=== PATIENT | female | born 1950 | race Caucasian/White ===

== ENCOUNTER → 2016-11-09 | Outpatient (CLI) | payer OTHER ==
--- NOTE | 2016-11-10 15:12 | REP ---
Right shoulder three views : There is no fracture or dislocation. Mineralization and joint spaces are normal. There are no calcifications or foreign bodies. Impression: Negative right shoulder . Signed by Cristian Solares MD 11/09/2016 07:45 P
== END ==
LOC: M ADAMS 16:40
PROVIDERS: ATTEND Physician Assistant
DX: M25.511 Pain in right shoulder (principal)

== ENCOUNTER → 2017-02-15 | Outpatient (REF) | payer OTHER | LOC: M SFHCWAGY 10:24 | PROVIDERS: ATTEND Nurse Practitioner Family | DX: Z12.4 Encounter for screening for malignant neoplasm of cervix (principal); N95.2 Postmenopausal atrophic vaginitis ==

== ENCOUNTER → 2018-02-18 | Outpatient (REF) | payer MEDICARE, OTHER | LOC: M SFHCWAGY 10:27 | DX: Z12.4 Encounter for screening for malignant neoplasm of cervix (principal); N95.2 Postmenopausal atrophic vaginitis | CPT/HCPCS: G0123 ==

== ENCOUNTER 2018-03-18 07:59 | Day surgery (SDC) | payer MEDICARE, OTHER ==
[2018-03-18] MEDS: NS 1,000 ML IV (08:00)
[2018-03-18] MEDS ORDERED: LIDOCAINE 2% INJ 100 MG/5 ML SDV (FOR ANES.) As Ordered (08:12)
[2018-03-18] MEDS ORDERED: PROPOFOL 200 MG/20 ML VIAL As Ordered (08:12)
== END 2018-03-18 10:20 | disposition home or self-care (01) ==
LOC: M OPP 07:59
DX: Z12.11 Encounter for screening for malignant neoplasm of colon (principal); Z86.010 Personal history of colon polyps; K57.30 Diverticulosis of large intestine without perforation or abscess without bleeding; Z78.0 Asymptomatic menopausal state; R06.83 Snoring; Z88.8 Allergy status to other drugs, medicaments and biological substances; Z80.1 Family history of malignant neoplasm of trachea, bronchus and lung
CPT/HCPCS: G0105

== ENCOUNTER → 2018-12-17 | Outpatient (REF) | payer MEDICARE, OTHER ==
[~2018-12-17] MED LIST: ALEV220T26 PO; CALC500T49 PO; VITA100067 PO
[2018-12-17 19:26] LABS: BASO % 0.3 % (0.0-1.0); EOS # 0.1 10^3/uL (0.0-0.50); EOS % 0.8 % (0.0-3.0); HEMATOCRIT 41.2 % (36.0-47.0); HEMOGLOBIN 13.4 g/dl (12.0-15.5); LYMPH # 2.4 10^3/uL (1.5-4.5); LYMPH % 30.3 % (24.0-44.0); MEAN CORPUSCULAR HEMOGLOBIN 32.5 pg (27.0-33.0); MEAN CORPUSCULAR HGB CONC 32.5 g/dl (32.0-36.5); MONO # 0.7 10^3/uL (0.0-0.8); MONO % 9.3 % (0.0-5.0); NEUTROPHILS # 4.6 10^3/uL (1.8-7.7); PLATELET COUNT, AUTOMATED 220 10^3/uL (150-450); RED BLOOD COUNT 4.12 10^6/uL (4.00-5.40); WHITE BLOOD COUNT 7.8 10^3/uL (4.0-10.0)
[2018-12-18 09:53] LABS: FOLATE 13.2 NG/ML
== END ==
LOC: M SFHCADAM 15:36
PROVIDERS: ATTEND Physician Assistant
DX: D72.819 Decreased white blood cell count, unspecified (principal); D75.89 Other specified diseases of blood and blood-forming organs; Z23 Encounter for immunization
CPT/HCPCS: 82607; 82746; 85025; 90732; G0009; G0463

== ENCOUNTER → 2020-03-24 | Outpatient (REF) | payer MEDICARE, OTHER | LOC: M SFHCWAGY 18:03 | PROVIDERS: ATTEND Nurse Practitioner Family | DX: Z12.4 Encounter for screening for malignant neoplasm of cervix (principal); N95.2 Postmenopausal atrophic vaginitis ==

== ENCOUNTER → 2024-01-22 | Outpatient (REF) | payer MEDICARE, OTHER | LOC: M SFHCADAM 13:45 | PROVIDERS: ATTEND Family Medicine | DX: D72.819 Decreased white blood cell count, unspecified (principal); R73.03 Prediabetes; E78.5 Hyperlipidemia, unspecified; E03.8 Other specified hypothyroidism ==

== ENCOUNTER → 2025-01-22 | Outpatient (CLI) | payer MEDICARE, OTHER | LOC: M WHC 15:23 | PROVIDERS: ATTEND Family Medicine | DX: Z53.9 Procedure and treatment not carried out, unspecified reason (principal) ==